=== PATIENT | male | born 1970 | race Caucasian/White ===

== ENCOUNTER 2019-12-15 20:20 | Emergency (ER) | payer OTHER ==
--- NOTE | 2019-12-15 20:53 | UC ---
Respiratory Complaint HPI - HPI Summary HPI Summary: Pt ate [employer] 6 days ago and the following night threw up in his sleep and felt like he inhaled a small amount. The vomiting woke him up. Since then R upper chest feels slightly painful whenever he uses his R upper area, or coughs. 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 diff from dung. denies issues w/ etoh. - History of Current Complaint Chief Complaint: UCChestPain Stated Complaint: ASPIRATION OF VOMIT-RT CHEST PAIN Time Seen by Provider: 12/15/19 20:40 Hx Obtained From: Patient Onset/Duration: Gradual Onset Character: Cough: Nonproductive Aggravating Factors: Deep Breaths, Other - certain movements Alleviating Factors: Spontaneous Resolution, Nothing - Allergies/Home Medications Allergies/Adverse Reactions: Allergies Allergy/AdvReac Type Severity Reaction Status Date / Time No Known Allergies Allergy Verified 12/15/19 21:02 Home Medications: Home Medications NK [No Home Medications Reported] 12/15/19 [History Confirmed 12/15/19] PMH/Surg Hx/FS Hx/Imm Hx - Additional Past Medical History Additional PMH: no chronic illness Previously Healthy: Yes Other History Of: Negative For: Anticoagulant Therapy - Surgical History Surgical History: Yes Surgery Procedure, Year, and Place: spinal implant 2003 - Family History Known Family History: Positive: Unknown, Hypertension - mother, Diabetes - mother - Social History Alcohol Use: Rare Substance Use Type: Marijuana Substance Use Comment - Amount & Last Used: everyday Smoking Status (MU): Heavy Every Day Tobacco Smoker Amount Used/How Often: 2 ppd Review of Systems All Other Systems Reviewed And Are Negative: Yes Constitutional: Negative: Fever, Chills, Fatigue Respiratory: Positive: Cough - occasional, dry Cardiovascular: Positive: Chest Pain - R upper area. Negative: Other - de;nies calf swelling or pain. Gastrointestinal: Positive: Vomiting - x1 6 days ago. Negative: Abdominal Pain , Diarrhea, Nausea Musculoskeletal: Negative: Decreased ROM Neurological/Mental Status: Negative: Weakness Physical Exam Triage Information Reviewed: Yes Appearance: Well-Appearing Vital Signs Reviewed: Yes ENT: Positive: Pharynx normal, Uvula midline. Negative: Hoarse voice Respiratory Exam: Normal Respiratory: Positive: Lungs clear, Other: - R upper chest has reproducible chest pain, no pain w/ inhalation/exhalation Cardiovascular Exam: Normal Abdomen Description: Positive: Nontender, Soft Musculoskeletal: Positive: No Edema - LE Neurological: Positive: Alert Diagnostics - Radiology No standard instances Radiology Interpretation Completed By: ED Physician Summary of Radiographic Findings: NO pneumonia Respiratory Course/Dx - Course Course Of Treatment: Movement related upper R chest pain after vomiting x 1 and pt felt he aspirated 6 days ago. Since then certain movements and occasional cough (he is a smoker) would make R upper chest become painful. ON exam pain is reproducible and likely related to some costochondirits process. vitals are good. recommended finding pcp for check up as he is a smoker but we disc xray prelim findings and no signs of aspiration. - Differential Dx/Diagnosis Differential Diagnosis/HQI/PQRI: Aspiration, Pulmonary Edema, Exacerbation Of COPD, Other Provider Diagnosis: Costochondral chest pain Discharge ED - Sign-Out/Discharge Documenting (check all that apply): Patient Departure All imaging exams completed and their final reports reviewed: No - Discharge Plan Condition: Good Disposition: HOME Patient Education Materials: Costochondritis (ED) Referrals: Jayme Anderson MD [Primary Care Provider] - Additional Instructions: If worsening please return. Consider returning to primary care for check up. - Billing Disposition and Condition Condition: GOOD Disposition: Home
[2019-12-15 21:01] VITALS: BP 139/81
--- NOTE | 2019-12-16 14:34 | UC ---
- Progress Note Progress Note: Final radiologist reading of chest x-ray from December 15, 2019 comes back as COPD no acute disease process. Provider interpretation same date is no pneumonia therefore there is no discrepancy. Course/Dx - Diagnoses Provider Diagnoses: Costochondral chest pain Discharge ED - Sign-Out/Discharge Documenting (check all that apply): Patient Departure All imaging exams completed and their final reports reviewed: Yes - Discharge Plan Condition: Good Disposition: HOME Patient Education Materials: Costochondritis (ED) Referrals: Jayme Anderson MD [Primary Care Provider] - Additional Instructions: If worsening please return. Consider returning to primary care for check up. - Billing Disposition and Condition Condition: GOOD Disposition: Home
== END 2019-12-15 21:15 | disposition home or self-care (01) ==
LOC: UCEAST 20:20
DX: R07.89 Other chest pain (principal); F17.210 Nicotine dependence, cigarettes, uncomplicated
CPT/HCPCS: 71046; 99201; G0463